=== PATIENT | female | born 1945 | race Hispanic/Latino ===

== ENCOUNTER 2021-12-06 05:30 | Observation (INO) | payer MEDICARE ==
[2021-12-05 11:40] LABS: BASOPHILS % (AUTO) 0.6 % (0.0-5.0); EOSINOPHILS % (AUTO) 0.9 % (0.0-8.0); LYMPHOCYTES % (AUTO) 17.5 % (21.0-51.0); MEAN CORPUSCULAR HEMOGLOBIN 29.9 pg (27.0-33.0); MEAN CORPUSCULAR HGB CONC 31.5 g/dL (32.0-36.0); MONOCYTES % (AUTO) 7.4 % (3.0-13.0); NEUTROPHILS % (AUTO) 73.4 % (40.0-77.0); PLATELET COUNT (AUTO) 273 K/uL (130-400); RED BLOOD CELL COUNT(AUTO) 4.21 MIL/uL (4.00-5.50); RED CELL DISTRIBUTION WIDTH 12.8 % (11.0-15.5); WHITE BLOOD COUNT (AUTO) 5.4 K/uL (4.8-10.8)
[2021-12-05 11:48] LABS: CREATININE 0.8 mg/dL (0.5-1.5); POTASSIUM 4.5 mmol/L (3.5-5.1)
[2021-12-05 12:05] VITALS: BP 152/76
[2021-12-06] VITALS (26 sets, daily range): BP systolic 98–135; BP diastolic 42–68
[~2021-12-06] VITALS: Ht 154.9 cm; Wt 66.0 kg
[~2021-12-06 05:30] MED LIST: AEC81 PO; AMLO-258 PO; LISI40TA9 PO; folic acid PO
[2021-12-06] MEDS ORDERED: LACTATED RINGERS 1000ML 1,000 ML IV ONE (06:04)
[2021-12-06] MEDS ORDERED: CEFAZOLIN SODIUM 1 GM VIAL ONE (06:04)
[2021-12-06] MEDS ORDERED: CEFAZOLIN SODIUM 1 GM VIAL IVP ONE (08:00)
[2021-12-06] MEDS ORDERED: FAMOTIDINE 20MG VIAL IV ONE (09:01)
[2021-12-06] MEDS ORDERED: HYDROMORPHONE 1 MG INJ ONE (09:02)
[2021-12-06] MEDS ORDERED: PROPOFOL 1000 MG/100 ML 0 ML IV ONE (09:06)
[2021-12-06] MEDS ORDERED: ROCURONIUM 10MG/1ML SYR 10 MG/ML ML ONE (09:07)
[2021-12-06] MEDS ORDERED: FENTANYL CITRATE PF 50 MCG/1 ML 2ML VIAL ONE (09:07)
[2021-12-06] MEDS ORDERED: GLYCOPYRROLATE 1 MG/5 ML SYRINGE ONE (09:07)
[2021-12-06] MEDS ORDERED: PROPOFOL 10 MG/ML 20ML VIAL IV ONE (09:08)
[2021-12-06] MEDS ORDERED: NEOSTIGMINE 5MG/5ML SYR IV ONE (10:19)
[2021-12-06] MEDS ORDERED: MEPERIDINE-PF 25 MG/ML SYG ONE (11:17)
[2021-12-06] MEDS ORDERED: PROMETHAZINE HCL 25 MG/ML 1ML AMPULE IM PRN ×2 (12:30)
[2021-12-06] MEDS ORDERED: BISACODYL 10 MG SUPP.RECT RC PRN (12:30)
[2021-12-06] MEDS ORDERED: MEPERIDINE-PF 75 MG/ML SYG IM PRN (12:30)
[2021-12-06] MEDS ORDERED: ONDANSETRON 4MG INJ IVP PRN (12:30)
[2021-12-06] MEDS ORDERED: IBUPROFEN 600 MG TABLET PO PRN (12:30)
[2021-12-06] MEDS: ACETAMINOPHEN WITH CODEINE 1 TAB TAB PO PRN ×2 (13:26→20:07)
[2021-12-06] MEDS: SIMETHICONE 80 MG TAB.CHEW PO PRN (20:05)
[2021-12-06] MEDS: LACTATED RINGERS 1000ML 1,000 ML IV SCH (21:46)
[2021-12-07 03:27] VITALS: BP 112/59
[2021-12-07] MEDS: LACTATED RINGERS 1000ML 1,000 ML IV SCH ×2 (05:52→21:30)
[2021-12-07 05:55] LABS: MEAN CORPUSCULAR HEMOGLOBIN 30.5 pg (27.0-33.0); MEAN CORPUSCULAR HGB CONC 31.5 g/dL (32.0-36.0); MEAN CORPUSCULAR VOLUME 96.8 fL (79-99); RED BLOOD CELL COUNT(AUTO) 3.41 MIL/uL (4.00-5.50); WHITE BLOOD COUNT (AUTO) 7.4 K/uL (4.8-10.8)
[2021-12-07] MEDS ORDERED: HYDROCODONE/ACETAMINOPHEN 5/325 MG TAB PO PRN (08:00)
[2021-12-07] MEDS: DOCUSATE SODIUM 100 MG CAP PO PRN ×2 (08:11→20:50)
[2021-12-07] MEDS: SIMETHICONE 80 MG TAB.CHEW PO PRN ×3 (08:11→20:50)
[2021-12-07 08:30] VITALS: BP 137/77
[2021-12-07 11:29] VITALS: BP 108/54
[2021-12-07 16:34] VITALS: BP 132/69
[2021-12-07] MEDS ORDERED: IBUPROFEN 800 MG TAB PO PRN (18:30)
[2021-12-07] MEDS ORDERED: ACETAMINOPHEN WITH CODEINE 1 TAB TAB PO PRN (18:30)
[2021-12-07 19:48] VITALS: BP 117/57
[2021-12-07] MEDS: NITROFURANTOIN MONOHYD/M-CRYST 100 MG CAPSULE PO SCH (20:51)
[2021-12-07] MEDS ORDERED: AMLODIPINE 5 MG TAB PO SCH (21:00)
[2021-12-07 23:18] VITALS: BP 113/53
[2021-12-08 03:45] VITALS: BP 125/61
[2021-12-08] MEDS: LACTATED RINGERS 1000ML 1,000 ML IV SCH (05:30)
[2021-12-08 07:17] VITALS: BP 126/61
[2021-12-08] MEDS ORDERED: LISINOPRIL 40 MG TABLET PO SCH (09:00)
[2021-12-08] MEDS ORDERED: FOLIC ACID 1 MG TABLET PO SCH (09:00)
[2021-12-08] MEDS: SIMETHICONE 80 MG TAB.CHEW PO PRN (09:50)
[2021-12-08] MEDS: NITROFURANTOIN MONOHYD/M-CRYST 100 MG CAPSULE PO SCH (09:50)
[2021-12-08] MEDS: DOCUSATE SODIUM 100 MG CAP PO PRN (09:50)
[2021-12-08 11:27] VITALS: BP 128/66
== END 2021-12-08 14:45 | disposition home or self-care (01) ==
LOC: DAH 05:30 → DAHIP 05:31 → WSH 12:15 → UNDODISOB 12-08 14:45
PROVIDERS: ADMIT Obstetrics & Gynecology; ATTEND Obstetrics & Gynecology
DX: N81.10 Cystocele, unspecified (principal); Z20.822 Contact with and (suspected) exposure to COVID-19; N81.6 Rectocele; I10 Essential (primary) hypertension; K21.9 Gastro-esophageal reflux disease without esophagitis; E11.9 Type 2 diabetes mellitus without complications; Z79.899 Other long term (current) drug therapy
CPT/HCPCS: 36415 ×2; 51040; 57260; 57288; 80048; 82948; 85025; 85027; 86850; 86900; 86901; 87635; 88302; A4215; A4221; A4222; A4223; A4351; A4606; A4663; A6260; C1771; C9803; G0378 ×52; J0690; J1170; J2175; J2704; J2710; J3010; J3490 ×2; J7120 ×5

== ENCOUNTER 2023-10-27 20:36 | Emergency (ER) | payer MEDICARE, OTHER ==
[~2023-10-27] VITALS: Ht 154.9 cm; Wt 57.6 kg
[2023-10-27] MEDS ORDERED: ONDANSETRON 4MG INJ IVP ONE (21:00)
[2023-10-27] MEDS ORDERED: FAMOTIDINE 20MG VIAL IV ONE (21:00)
[2023-10-27 21:17] LABS: BASOPHILS # (AUTO) 0.05 K/uL (0.00-0.20); BASOPHILS % (AUTO) 0.4 % (0.0-5.0); EOSINOPHILS # (AUTO) 0.01 K/uL (0.00-0.70); EOSINOPHILS % (AUTO) 0.1 % (0.0-8.0); HEMATOCRIT 26.7 % (36-48); IMMATURE GRANULOCYTE ABSOLUTE 0.44 K/uL (0-1); LYMPHOCYTES # (AUTO) 1.2 K/uL (1.0-4.8); LYMPHOCYTES % (AUTO) 9.8 % (21.0-51.0); MEAN CORPUSCULAR HEMOGLOBIN 33.2 pg (27.0-33.0); MEAN CORPUSCULAR HGB CONC 32.2 g/dL (32.0-36.0); MEAN CORPUSCULAR VOLUME 103.1 fL (79-99); MONOCYTES # (AUTO) 0.8 K/uL (0.1-1.0); MONOCYTES % (AUTO) 6.6 % (3.0-13.0); NEUTROPHILS # (AUTO) 9.8 K/uL (1.8-7.7); NEUTROPHILS % (AUTO) 79.5 % (40.0-77.0); PLATELET COUNT (AUTO) 196 K/uL (130-400); RED BLOOD CELL COUNT(AUTO) 2.59 MIL/uL (4.00-5.50); RED CELL DISTRIBUTION WIDTH 13.4 % (11.0-15.5); WHITE BLOOD COUNT (AUTO) 12.3 K/uL (4.8-10.8)
[2023-10-27 21:35] LABS: ALBUMIN 3.1 g/dL (3.5-5.0); BILIRUBIN,TOTAL 0.4 mg/dL (0.2-1.0)
[2023-10-27 21:50] LABS: POTASSIUM 2.8 mmol/L (3.5-5.1)
[2023-10-27 21:53] LABS: B-TYPE NATRIURETIC PEPTIDE 18 pg/mL (0-100)
[2023-10-27] MEDS: 0.9%NACL 1000ML 1,000 ML IV SCH ×2 (21:53→22:23)
[2023-10-27] MEDS ORDERED: POTASSIUM BICARB/CIT AC 25 MEQ TABLET.EFF PO ONE (22:00)
[2023-10-27] MEDS ORDERED: IOHEXOL-350 75 ML VIAL IV ONE (22:10)
[2023-10-27 22:47] LABS: SARS-CoV-2, RNA, NAAT NEGATIVE SARS CoV-2 (NEGATIVE)
[2023-10-27 22:50] LABS: INFLUENZA TYPE A Negative For Type A (NEGATIVE); INFLUENZA TYPE B Negative For Type B (NEGATIVE)
[2023-10-28] MEDS ORDERED: LACT1CAP81 PO (00:14)
[2023-10-28] MEDS ORDERED: ONDA4TAB10 SL (00:14)
[2023-10-28] MEDS ORDERED: FAMO-136 PO (00:14)
[2023-10-28 00:25] VITALS: BP 129/73; PULSE 98; RESP 18; O2SAT 99
[2023-10-30 15:15] LABS: C DIFFICILE TOXIN A/B Not Detected (Not Detected); ENTEROAGGREGATIVE ECOLI Not Detected (Not Detected); GIARDIA LAMBLIA Not Detected (Not Detected); PLESIOMONAS SHIGELOIDES Not Detected (Not Detected); SAPOVIRUS Not Detected (Not Detected); SHIGELLA/ENTEROINVASIVE E COLI Not Detected (Not Detected); VIBRIO Not Detected (Not Detected); VIBRIO CHOLERAE Not Detected (Not Detected)
== END 2023-10-28 00:25 | disposition home or self-care (01) ==
LOC: EDH 20:36
DX: K52.9 Noninfective gastroenteritis and colitis, unspecified (principal); I10 Essential (primary) hypertension; E11.9 Type 2 diabetes mellitus without complications; Z20.822 Contact with and (suspected) exposure to COVID-19; Z79.82 Long term (current) use of aspirin; Z79.899 Other long term (current) drug therapy; Z98.890 Other specified postprocedural states; Z90.710 Acquired absence of both cervix and uterus
CPT/HCPCS: 99285; 74177; 96374; 71045; 87635; 96361; 96375; 84484 ×2; 80053; 83880; 85025; 87804 ×2; 36415; 93005; 87507; J3490; J7030; J2405; Q9967

== ENCOUNTER → 2024-09-01 | Outpatient (CLI) | payer OTHER ==
[~2024-09-01] MED LIST changes: +FAMO-136 PO; +LACT1CAP81 PO; +ONDA-243 SL
--- NOTE | 2024-09-01 15:27 | HMCIMG ---
CHEST 2VWS REASON: SHORTNESS OF BREATH COMPARISON: 10/27/2023 FINDINGS: Two views of the chest were obtained. There are increased interstitial markings present throughout both lungs. These appear new since previous exam, interstitial pneumonia appears most likely. Interstitial fibrosis less likely in this short interval time period. Right hemidiaphragm elevation is again noted. Heart size is normal. No vascular congestion or pleural effusion. Chest port remains in place. IMPRESSION: 1. Interstitial pneumonia favored over fibrosis Diffusely increased interstitial markings throughout both lungs
== END | disposition home or self-care (01) ==
LOC: RAH 14:48 → EDBD 14:48
PROVIDERS: ATTEND Internal Medicine
DX: J84.10 Pulmonary fibrosis, unspecified (principal); J84.9 Interstitial pulmonary disease, unspecified; R06.02 Shortness of breath
CPT/HCPCS: 71046